=== PATIENT | female | born 1970 | race African-American/Black ===

== ENCOUNTER 2018-07-16 05:38 | Emergency (ER) | payer OTHER ==
[~2018-07-16] VITALS: Ht 167.6 cm; Wt 80.3 kg
--- NOTE | 2018-07-16 05:45 | NUR ---
PT BIBRA C/C SUDDEN ONSET LLQ ABD PAIN. -SOB -N/V. AOX4. -DIZZY. PT ON MONITOR IN BED 10. WILL CONTINUE TO MONITOR.
[2018-07-16] MEDS ORDERED: oxyCODONE/APAP (5/325 MG) 1 UDTAB TABLET ONE (05:47)
[2018-07-16] MEDS ORDERED: ONDANSETRON 4 MG TAB.RAPDIS ONE (05:48)
--- NOTE | 2018-07-16 05:52 | NUR ---
BLOOD DRAWN AND GIVEN TO LAB
[2018-07-16 05:58] LABS: BASOPHILS # (AUTO) 0.1 /CMM (0.0-0.2); EOSINOPHILS % (AUTO) 2.2 % (0.0-6.0); HEMATOCRIT 40 % (33-45); HEMOGLOBIN 13.6 g/dL (11.5-14.8); LYMPHOCYTES # (AUTO) 2.2 /CMM (0.8-4.8); LYMPHOCYTES % (AUTO) 38.2 % (20.0-44.0); MEAN CORPUSCULAR HGB CONC 34 g/dl (31.0-36.0); MEAN CORPUSCULAR VOLUME 88 fL (82-100); MONOCYTES # (AUTO) 0.5 /CMM (0.1-1.30); MONOCYTES % (AUTO) 8.4 % (2.0-12.0); NEUTROPHILS # (AUTO) 2.8 /CMM (1.8-8.9); NEUTROPHILS % (AUTO) 50.2 % (43.0-81.0); PLATELET COUNT (AUTO) 287 /CMM (150-450); RED BLOOD CELL COUNT(AUTO) 4.53 MIL/uL (4.0-5.2); WHITE BLOOD COUNT (AUTO) 5.7 K/uL (4.3-11.0)
[2018-07-16] MEDS ORDERED: oxyCODONE/APAP (5/325 MG) 1 UDTAB TABLET PO ONE (06:00)
[2018-07-16] MEDS ORDERED: ONDANSETRON 4 MG TAB.RAPDIS SL ONE (06:00)
[2018-07-16 06:04] LABS: CALCIUM, SERUM 8.6 mg/dL (8.5-10.1); POTASSIUM 4.1 mmol/L (3.5-5.1)
--- NOTE | 2018-07-16 06:05 | NUR ---
PT VOMITTED. MD AWARE.
[2018-07-16 06:11] LABS: ALBUMIN 3.5 g/dL (3.4-5.0); BILIRUBIN,DIRECT 0.1 mg/dL (0.0-0.2); BILIRUBIN,TOTAL 0.3 mg/dL (0.2-1.0); TOTAL PROTEIN, SERUM 7.4 g/dL (6.4-8.2)
[2018-07-16] MEDS ORDERED: ONDANSETRON HCL/PF 4 MG/2 ML VIAL ONE (06:17)
[2018-07-16] MEDS ORDERED: FAMOTIDINE/PF INJ 20 MG/2 ML VIAL IV ONE ×2 (06:17→06:30)
[2018-07-16] MEDS ORDERED: LORAZEPAM INJ 2 MG/ML VIAL ONE (06:25)
[2018-07-16] MEDS ORDERED: IV NS 0.9% 1,000 ML BAG IV ONE (06:30)
[2018-07-16] MEDS ORDERED: LORAZEPAM INJ 2 MG/ML VIAL IV ONE (06:30)
[2018-07-16] MEDS ORDERED: ONDANSETRON HCL/PF - ER 4 MG/2 ML VIAL IV ONE (06:30)
--- NOTE | 2018-07-16 06:31 | NUR ---
PT TAKEN TO RADIOLOGY VIA [facility]
--- NOTE | 2018-07-16 07:19 | NUR ---
Called Wyatt Barillas MD [phone]
[2018-07-16] MEDS ORDERED: TAMSULOSIN 0.4 MG CAP.SR.24H PO ONE (07:30)
[2018-07-16] MEDS ORDERED: KETOROLAC TROMETHAMINE INJ 30 MG/ML VIAL IV ONE (07:30)
[2018-07-16] MEDS ORDERED: KETOROLAC TROMETHAMINE INJ 30 MG/ML VIAL ONE (07:38)
[2018-07-16] MEDS ORDERED: TAMSULOSIN 0.4 MG CAP.SR.24H ONE (07:38)
[2018-07-16] MEDS ORDERED: MORPHINE SULFATE INJ 4 MG/ML DISP.SYRIN ONE (07:54)
[2018-07-16] MEDS ORDERED: MORPHINE SULFATE INJ 2 MG/ML DISP.SYRIN IV ONE (08:00)
--- NOTE | 2018-07-16 09:47 | NUR ---
Followup Called Wyatt Barillas MD [phone]
[2018-07-16 10:42] VITALS: BP 160/90
--- NOTE | 2018-07-16 10:45 | NUR ---
For discharge- After care instructions given verbalized understanding Home ambulatory in NAD. No acute changes from initial Ambulatory Stable
== END 2018-07-16 10:44 | disposition home or self-care (01) ==
LOC: ER 05:40
DX: N13.2 Hydronephrosis with renal and ureteral calculous obstruction (principal); G89.29 Other chronic pain
CPT/HCPCS: 36415; 74021; 74176; 80048; 80076; 83690; 84702; 85025; 96361; 96374; 96375; 99284; J1885; J2060; J2270; J2405 ×2; J3490; J7030; Q0162

== ENCOUNTER 2019-01-05 17:48 | Emergency (ER) | payer MEDICAID, OTHER ==
[~2019-01-05] VITALS: Ht 160 cm; Wt 49.9 kg
--- NOTE | 2019-01-05 17:55 | NUR ---
[facility] TO ER, HER HORSE SHOW JUDGE CALLED THE [facility] - " DECOMPENSATED DEPRESSION, POSSIBLE SUICIDAL IDEATION" PT IS AAOX3, NOT IN RESPIRATORY DISTRESS, HOOKED TO MONITOR, KEPT RESTED AND COMFORTABLE, WILL CONTINUE TO MONITOR.
--- NOTE | 2019-01-05 18:19 | NUR ---
AT BEDSIDE FOR EVAL, PT REFUSED BLOOD DRAW, AWARE
--- NOTE | 2019-01-05 18:25 | NUR ---
WILL WAIT FOR PT TREE LOADER MEAT FOR INFO AND POSSIBLY CONVINCE PT FOR BLOOD TEST.
--- NOTE | 2019-01-05 18:29 | NUR ---
FOOD TRAY PROVIDED.
--- NOTE | 2019-01-05 18:46 | NUR ---
URINE SPECIMEN COLLECTED AND SENT TO LAB.
--- NOTE | 2019-01-05 18:50 | NUR ---
ER PHLEB AT BEDSIDE FOR BLOOD DRAWNED
[2019-01-05 18:57] LABS: BASOPHILS % (AUTO) 0.5 % (0.0-2.0); EOSINOPHILS % (AUTO) 1.2 % (0.0-6.0); HEMATOCRIT 45 % (33-45); HEMOGLOBIN 15.4 g/dL (11.5-14.8); LYMPHOCYTES # (AUTO) 2.6 /CMM (0.8-4.8); MEAN CORPUSCULAR HGB CONC 34 g/dl (31.0-36.0); MEAN CORPUSCULAR VOLUME 89 fL (82-100); MONOCYTES # (AUTO) 0.6 /CMM (0.1-1.30); MONOCYTES % (AUTO) 8.2 % (2.0-12.0); NEUTROPHILS # (AUTO) 3.5 /CMM (1.8-8.9); NEUTROPHILS % (AUTO) 52.1 % (43.0-81.0); PLATELET COUNT (AUTO) 284 /CMM (150-450); RED BLOOD CELL COUNT(AUTO) 5.02 MIL/uL (4.0-5.2); WHITE BLOOD COUNT (AUTO) 6.8 K/uL (4.3-11.0)
[2019-01-05 19:00] LABS: APPEARANCE,URINE Clear (CLEAR); BILIRUBIN,URINE Negative (NEGATIVE); BLOOD, URINE Negative Ery/uL (NEGATIVE); COLOR,URINE Yellow (YELLOW); KETONES,URINE Negative (NEGATIVE); LEUKOCYTE ESTERASE ,URINE Negative (NEGATIVE); NITRITE, URINE Negative (NEGATIVE); PROTEIN,URINE Negative (NEGATIVE); UGLUCOSE 500 MG/DL mg/dL (NEGATIVE); UROBILINOGEN,URINE 0.2 EU/dL (0.2)
[2019-01-05 19:02] LABS: CREATININE 1.1 mg/dL (0.6-1.3); POTASSIUM 3.3 mmol/L (3.5-5.1)
[2019-01-05 19:08] LABS: ALBUMIN 3.8 g/dL (3.4-5.0); BILIRUBIN,TOTAL 0.6 mg/dL (0.2-1.0); TOTAL PROTEIN, SERUM 7.9 g/dL (6.4-8.2)
--- NOTE | 2019-01-05 19:17 | NUR ---
REPORT GIVEN TO ALEKSANDER CONRAD FOR [facility].
--- NOTE | 2019-01-05 20:33 | NUR ---
DIEGOY PAGED, STATES SHE IS ON HER WAY
[2019-01-05] MEDS ORDERED: FAMOTIDINE (20 MG) 20 MG TABLET ONE (20:34)
[2019-01-05] MEDS ORDERED: FAMOTIDINE (20 MG) 20 MG TABLET PO ONE (21:00)
[2019-01-05 22:44] VITALS: BP 127/78
== END 2019-01-05 22:44 | disposition home or self-care (01) ==
LOC: ER 17:51
DX: F22 Delusional disorders (principal); F20.9 Schizophrenia, unspecified; F31.9 Bipolar disorder, unspecified; F39 Unspecified mood [affective] disorder
CPT/HCPCS: 36415; 80053; 80305; 80307; 81001; 84703; 85025; 93005; 99284; J7030; 81000-TC; G0480

== ENCOUNTER 2019-01-08 22:22 | Emergency (ER) | payer MEDICAID ==
[~2019-01-08] VITALS: Ht 160 cm; Wt 81.6 kg
--- NOTE | 2019-01-08 22:25 | NUR ---
BIB RA, AA/OX4. C/C MIDSTERNAL CHEST PAIN X TODAY WITH NAUSEA/ VOMITING. MOVES ALL EXTREMITIES WELL. SKIN PINK, WARM, DRY. ACTIVE BOWEL SOUNDS. PEDAL PULSES PRESENT. VSS. NAD. WILL CONTINUE TO MONITOR. Addendum: 01/08/19 at 2339 by JAY JAY PAIN WORSENS WHILE LAYING DOWN ON BACK.
--- NOTE | 2019-01-08 23:18 | NUR ---
Patient is resting comfortably in bed with eyes closed. Easily aroused. VSS. NAD
[2019-01-08 23:44] LABS: BASOPHILS # (AUTO) 0.1 /CMM (0.0-0.2); EOSINOPHILS % (AUTO) 0.8 % (0.0-6.0); HEMATOCRIT 45 % (33-45); HEMOGLOBIN 15.8 g/dL (11.5-14.8); LYMPHOCYTES # (AUTO) 2.2 /CMM (0.8-4.8); LYMPHOCYTES % (AUTO) 27.5 % (20.0-44.0); MEAN CORPUSCULAR HGB CONC 35 g/dl (31.0-36.0); MEAN CORPUSCULAR VOLUME 89 fL (82-100); MONOCYTES # (AUTO) 0.6 /CMM (0.1-1.30); MONOCYTES % (AUTO) 7.6 % (2.0-12.0); NEUTROPHILS # (AUTO) 5.2 /CMM (1.8-8.9); NEUTROPHILS % (AUTO) 63.1 % (43.0-81.0); PLATELET COUNT (AUTO) 314 /CMM (150-450); RED BLOOD CELL COUNT(AUTO) 5.07 MIL/uL (4.0-5.2); WHITE BLOOD COUNT (AUTO) 8.2 K/uL (4.3-11.0)
--- NOTE | 2019-01-08 23:48 | NUR ---
X RAY AT BEDSIDE
[2019-01-08 23:56] LABS: CALCIUM, SERUM 9.9 mg/dL (8.5-10.1); CARBON DIOXIDE 25 mmol/L (21-32); CHLORIDE 100 mmol/L (98-107); CREATININE 1.2 mg/dL (0.6-1.3); GLUCOSE 122 mg/dL (74-106); POTASSIUM 3.8 mmol/L (3.5-5.1); SODIUM SERUM 137 mmol/L (136-145); UREA NITROGEN, BLOOD 17 mg/dL (7-18)
[2019-01-09 00:02] LABS: ALANINE AMINOTRANSFERASE 14 U/L (12-78); ALBUMIN 3.6 g/dL (3.4-5.0); ALKALINE PHOSPHATASE 122 U/L (46-116); ASPARTATE AMINOTRANSFERASE 11 U/L (15-37); BILIRUBIN,DIRECT 0.1 mg/dL (0.0-0.2); BILIRUBIN,TOTAL 0.6 mg/dL (0.2-1.0); TOTAL PROTEIN, SERUM 8.2 g/dL (6.4-8.2)
--- NOTE | 2019-01-09 00:42 | NUR ---
PT CONTINUES TO REST COMFORTABLY. AA/OX4. VSS. NAD.
[2019-01-09] MEDS ORDERED: LIDOCAINE VISCOUS 2% UD 15 ML UDC ONE (00:49)
[2019-01-09] MEDS ORDERED: FAMOTIDINE/PF INJ 20 MG/2 ML VIAL IV ONE ×2 (00:49→01:00)
[2019-01-09] MEDS ORDERED: MAG HYDROX/AL HYDROX/SIMETH 30 ML UDC ONE (00:49)
[2019-01-09] MEDS ORDERED: LORAZEPAM INJ 2 MG/ML VIAL ONE (00:50)
[2019-01-09] MEDS ORDERED: LORAZEPAM INJ 2 MG/ML VIAL IV ONE (01:00)
[2019-01-09] MEDS ORDERED: MAG HYDROX/AL HYDROX/SIMETH 30 ML UDC PO ONE (01:00)
[2019-01-09] MEDS ORDERED: LIDOCAINE VISCOUS 2% UD 15 ML UDC MM ONE (01:00)
--- NOTE | 2019-01-09 02:37 | NUR ---
PT RESTING WITH EYES CLOSED. EASILY AROUSED. WHEN AROUSED AA/OX4. VSS. NAD. SAFETY MEASURES IN PLACE.
--- NOTE | 2019-01-09 05:15 | NUR ---
Patient discharged to home in stable condition. Written and verbal after care instructions given. Patient verbalizes understanding of instruction. IV removed. Catheter intact and site benign. Pressure and 4x4 applied to site. No bleeding noted. AMBULATED WITH STEADY GAIT. VSS. NAD.
[2019-01-09 05:17] VITALS: BP 114/76
== END 2019-01-09 05:18 | disposition home or self-care (01) ==
LOC: ER 22:27
DX: R07.89 Other chest pain (principal); K21.9 Gastro-esophageal reflux disease without esophagitis; F41.9 Anxiety disorder, unspecified; F39 Unspecified mood [affective] disorder; F20.9 Schizophrenia, unspecified; F31.9 Bipolar disorder, unspecified; F17.200 Nicotine dependence, unspecified, uncomplicated; R00.0 Tachycardia, unspecified
CPT/HCPCS: 36415 ×2; 71045; 80048; 80076; 83690; 84484 ×2; 85025; 85730; 93005; 96374; 96375; 99284; J2060; J3490